=== PATIENT | female | born 1980 | race Caucasian/White ===

== ENCOUNTER → 2018-03-07 | Outpatient (CLI) | payer OTHER ==
[~2018-03-07] MED LIST: MULT-506 PO
== END | disposition home or self-care (01) ==
LOC: C.LAB 09:12
PROVIDERS: ATTEND Family Medicine
DX: R06.02 Shortness of breath (principal)

== ENCOUNTER 2018-03-09 09:45 | Emergency (ER) | payer OTHER ==
[~2018-03-09] VITALS: Ht 175.3 cm; Wt 56.1 kg
[2018-03-09 09:49] VITALS: TEMP 36.7; Ht 175.3 cm; Wt 56.1 kg
[2018-03-09 09:55] VITALS: O2SAT 100
[2018-03-09] MEDS ORDERED: SODIUM CHLORIDE 0.9% 1000ML 1,000 ML IV STA (10:03)
[2018-03-09] MEDS ORDERED: ASPIRIN 81 MG CHEW PO STA (10:03)
[2018-03-09] MEDS ORDERED: KETOROLAC TROMETHAMINE 30 MG/ML VIAL IV STA (10:03)
[2018-03-09 10:10] LABS: BASO % 0.6 %; BASO ABS # 0.03 K/uL (0-0.2); EOS ABS # 0.05 K/uL (0-0.5); HEMATOCRIT 42.3 % (37-47); HEMOGLOBIN 14.7 g/dL (12.0-16.0); LYMPH % 29.3 %; LYMPH ABS # 1.54 K/uL (1.2-3.4); MEAN CELL VOLUME 85.3 fL (80-100); MEAN CORPUSCULAR HEMOGLOBIN 29.6 pg (25-34); MEAN CORPUSCULAR HGB CONC 34.8 g/dl (32-36); MEAN PLATELET VOLUME 9.7 fL (7.4-10.4); MONO ABS # 0.37 K/uL (0.11-0.59); NEUT % 62.1 %; NEUT ABS # 3.27 K/uL (1.4-6.5); PLATELET COUNT 228 K/uL (130-400); RED CELL DISTRIBUTION WIDTH CV 12.6 % (11.5-14.5); RED CELL DISTRIBUTION WIDTH SD 38.7 fL (36.4-46.3); WHITE BLOOD COUNT 5.26 K/uL (4.8-10.8)
[2018-03-09] MEDS ORDERED: MULT-506 PO (10:29)
--- NOTE | 2018-03-09 10:32 | DIAGNOSTIC IMAGING REPORT ---
CHEST ONE VIEW PORTABLE HISTORY: Atypical Chest Pain COMPARISON: None. FINDINGS: The lungs are clear. Cardiac silhouette is normal in size. No pleural effusions. No pneumothorax. IMPRESSION: No acute process. Electronically signed by: Hi Sinclair M.D. 03/09/2018 10:31 AM Dictated Date/Time: 03/09/2018 10:29 AM
[2018-03-09 10:33] LABS: BLOOD UREA NITROGEN 14 mg/dl (7-18); CALCIUM 8.7 mg/dl (8.5-10.1); CARBON DIOXIDE 26 mmol/L (21-32); CREATININE 0.94 mg/dl (0.60-1.20); GLUCOSE 102 mg/dl (70-99); POTASSIUM 3.5 mmol/L (3.5-5.1); SODIUM 139 mmol/L (136-145)
[2018-03-09 15:34] VITALS: BP 94/67; PULSE 67; O2SAT 99
--- NOTE | 2018-03-09 16:35 | EXERCISE STRESS ECHO ---
*NOTICE TO RECEIVING [employer] This information is strictly Confidential and protected under [place] law. [place] law prohibits you from making any further disclosure of this information unless further disclosure is expressly permitted by the written consent of the person to whom it pertains or is authorized by law. A general authorization for the release of medical or other information is not sufficient for this purpose. Hospital accepts no responsibility if the information is made available to any other person, INCLUDING THE PATIENT. Interpretation Summary * Name: MAULIK SORENSEN Study Date: 03/09/2018 01:46 PM BP: 114/48 mmHg * Patient Location: [facility] HR: 60 * : 1980 (M/d/yyyy) Gender: Female Height: 69 in * Age: 37 yrs Ethnicity: [place] Weight: 123 lb * Ordering Physician: Nick Sanchez * Referring Physician: Self, Referred * Performed By: Latonia Alexander RDCS * * Reason For Study: CHEST PAIN * BSA: 1.7 m2 * -- Conclusions -- * Nonischemic exercise stress echocardiogram * No arrhythmias. * Normal HR and BP response to exercise. * Above average exercise tolerance. * At rest, normal LV chamber size and wall thickness. * Normal LV s ystolic function, EF 60-65%. * No segmental left ventricular wall motion abnormalities are noted. * Normal diastolic function. * No significant valvular pathology. * Posterior pericardial wall with possible increased thickness. Cannot exclude regional pericardial inflammation. Procedure Details * ECHOEX, CPT #37059 Left Ventricle * The left ventricle is normal in size. * There is normal left ventricular wall thickness. * Ejection Fraction = 60-65%. * Left ventricular systolic function is normal. * No segmental left ventricular wall motion abnormalities are noted. * Resting wall motion: Normal. Stress wall motion: Appropriate increase in Left ventricular systolic function and decrease in cavity size. No stress induced segmental wall motion abnormalities. Right Ventricle * The right ventricular cavity size is normal (basal dimension <4.2 cm in right ventricular apical 4-chamber view). * The right ventricular systolic function is normal as assessed by tricuspid annular plane systolic excursion (TAPSE) (normal >1.5 cm). Atria * The left atrial size is normal. * Right atrial size is normal. * No ASD detected; PFO is not assessed. Mitral Valve * The mitral valve is normal in structure and function. Tricuspid Valve * The tricuspid valve is normal in structure and function. Aortic Valve * The aortic valve is not well visualized. * No hemodynamically significant valvular aortic stenosis. * There is no significant aortic regurgitation. Pulmonic Valve * The pulmonary valve is not well seen, but the Doppler examination is normal without significant regurgitation or stenosis. Great Vessels * The aortic root is normal size. Pericardium * There is no pericardial effusion. * Posterior pericardial wall with possible increased thickness. Cannot exclude regional pericardial inflammation. Stress Parameters * Normal baseline electrocardiogram. * Stress ECG: No ST changes. No arrhythmias. * No arrhythmia were noted with stress. * The stress portion of this study was personally supervised by the undersigned interpreting physician. * Rest heart rate was '60' BPM. * Rest blood pressure was '114/48' * Maximum heart rate achieved was 169 bpm. * Maximum heart rate was 91 % of maximum age-predicted heart rate. * Maximum blood pressure was '150/86' * Total exercise time was '11:04' * Maximum exercise MET level achieved was '13.40' METS * Maximum treadmill speed was '4.20' miles per hour. * Maximum treadmill elevation was '16.00'% grade. * Exercise was terminated due to 'ACHIEVING TARGET HR' Left Ventricular Diastolic Function * Pulse wave TDI of the anterior and posterior mitral annulas demonstrates normal LV relaxation MMode 2D Measurements and Calculations IVSd 0.68 cm IVSs 0.74 cm LVIDd 4.2 cm LVIDs 2.8 cm LVPWd 0.71 cm LVPWs 1.1 cm IVS/LVPW 0.97 FS 34.1 % EDV(Teich) 78.1 ml ESV(Teich) 28.6 ml EF(Teich) 63.4 % EDV(cubed) 73.5 ml ESV(cubed) 21.1 ml EF(cubed) 71.3 % % IVS thick 8.7 % % LVPW thick 49.3 % LV mass(C)d 83.8 grams LV mass(C)dI 49.9 grams/m\S\2 LV mass(C)s 61.9 grams LV mass(C)sI 36.8 grams/m\S\2 SV(Teich) 49.5 ml SI(Teich) 29.5 ml/m\S\2 SV(cubed) 52.4 ml SI(cubed) 31.2 ml/m\S\2 Ao root diam 2.5 cm Ao root area 4.9 cm\S\2 LA dimension 2.8 cm LA/Ao 1.1 LVAd ap4 25.7 cm\S\2 LVLd ap4 8.8 cm EDV(MOD-sp4) 64.0 ml EDV(sp4-el) 63.9 ml LVAs ap4 13.4 cm\S\2 LVLs ap4 7.1 cm ESV(MOD-sp4) 22.2 ml ESV(sp4-el) 21.4 ml EF(MOD-sp4) 65.3 % EF(sp4-el) 66.5 % LVAd ap2 24.5 cm\S\2 LVLd ap2 8.6 cm EDV(MOD-sp2) 59.5 ml EDV(sp2-el) 59.5 ml LVAs ap2 13.8 cm\S\2 LVLs ap2 7.4 cm ESV(MOD-sp2) 22.2 ml ESV(sp2-el) 21.7 ml EF(MOD-sp2) 62.7 % EF(sp2-el) 63.5 % LVLd %diff -2.17 % EDV(MOD-bp) 61.2 ml LVLs %diff 3.4 % ESV(MOD-bp) 22.8 ml EF(MOD-bp) 62.8 % SV(MOD-sp4) 41.8 ml SI(MOD-sp4) 24.9 ml/m\S\2 SV(MOD-sp2) 37.3 ml SI(MOD-sp2) 22.2 ml/m\S\2 SV(MOD-bp) 38.5 ml SI(MOD-bp) 22.9 ml/m\S\2 SV(sp4-el) 42.5 ml SI(sp4-el) 25.3 ml/m\S\2 SV(sp2-el) 37.8 ml SI(sp2-el) 22.5 ml/m\S\2 Doppler Measurements and Calculations MV E max jovan 88.4 cm/sec MV A max jovan 48.5 cm/sec MV E/A 1.8 MV dec time 0.31 sec Ao V2 max 144.9 cm/sec Ao max PG 8.4 mmHg Ao max PG (full) 1.5 mmHg LV V1 max PG 6.9 mmHg LV V1 max 131.0 cm/sec
--- NOTE | 2018-03-09 16:47 | EMERGENCY ROOM VISIT NOTE ---
History Report prepared by Kinga: Diego Hardy Under the Supervision of: Dr. Wesley Solomon D.O. First contact with patient: 09:53 Chief Complaint: CHEST PAIN Stated Complaint: CHEST DISCOMFORT/PAIN, LIGHTHEADEDNESS Nursing Triage Summary: pt reports chest pain has bene intermittent for 1 week feels sob and describes pain as heaviness. went to pcp on friday had blood work and ekg told testing was fine History of Present Illness The patient is a 37 year old female who presents to the Emergency Room with complaints of intermittent chest "discomfort" that she has been experiencing for the past week. From last night into this morning the discomfort has been more constant, but she felt fine yesterday morning into the afternoon. The symptoms are worsened with exertion. Nothing seems to improve the pain. There has been pain intermittently radiating down both arms as well and she has felt some shortness of breath. She notes that she was experiencing lightheadedness before the chest pain initially onset 1 week ago. The patient denies any recent trips/travel or family/personal history of blood clots. There is a family history of heart disease. Source of History: patient Onset: 1 week ago Position: chest Quality: other ("Discomfort") Timing: intermittent Associated Symptoms: + headache (lightheadedness), + SOB Review of Systems See HPI for pertinent positives & negatives. A total of 10 systems reviewed and were otherwise negative. Past Medical & Surgical No significant medical histories. Family History Heart disease Social History Smoking Status: Never Smoker Marital Status: Housing Status: lives with family Occupation Status: employed Current/Historical Medications Scheduled Multivitamin (Multivitamin), 1 TAB PO DAILY Allergies Coded Allergies: Penicillins (Unverified Allergy, Unknown, UNKNOWN, 03/09/18) Physical Exam Vital Signs Date Time Temp Pulse Resp B/P (MAP) Pulse Ox O2 Delivery O2 Flow Rate FiO2 03/09/18 15:34 67 18 94/67 99 Room Air 03/09/18 14:03 62 18 104/59 99 Room Air 03/09/18 13:13 62 03/09/18 12:38 65 18 108/64 99 Room Air 03/09/18 10:54 66 18 116/68 100 Room Air 03/09/18 10:26 71 18 137/81 100 Room Air 03/09/18 10:00 79 03/09/18 09:55 100 Room Air 03/09/18 09:49 36.7 91 18 122/79 100 Room Air Physical Exam GENERAL: Sitting up in bed, alert, well appearing, well nourished, no distress, non-toxic EYE EXAM: normal conjunctiva. OROPHARYNX: no exudate, no erythema, lips, buccal mucosa, and tongue normal and mucous membranes are moist NECK: supple, no nuchal rigidity, no adenopathy, non-tender LUNGS: Clear to auscultation. Normal chest wall mechanics HEART: no murmurs, S1 normal and S2 normal ABDOMEN: abdomen soft, non-tender, normo-active bowel sounds, no masses, no rebound or guarding. BACK: Back is symmetrical on inspection and there is no deformity, no midline tenderness, no CVA tenderness. SKIN: no rashes and no bruising UPPER EXTREMITIES: upper extremities are grossly normal. Radial pulses are equal bilaterally. LOWER EXTREMITIES: No pitting edema. Calves equal bilaterally. NEURO EXAM: Normal sensorium, cranial nerves II-XII grossly intact, normal speech, no gross weakness of arms, no gross weakness of legs. Medical Decision & Procedures ER Provider Diagnostic Interpretation: Radiology results as stated below per my review and the radiologist's interpretation: CHEST ONE VIEW PORTABLE HISTORY: Atypical Chest Pain COMPARISON: None. FINDINGS: The lungs are clear. Cardiac silhouette is normal in size. No pleural effusions. No pneumothorax. IMPRESSION: No acute process. Electronically signed by: Hi Sinclair M.D. 03/09/2018 10:31 AM Dictated Date/Time: 03/09/2018 10:29 AM Laboratory Results 03/09/18 10:00 Red Blood Count 4.96, Mean Corpuscular Volume 85.3, Mean Corpuscular Hemoglobin 29.6, Mean Corpuscular Hemoglobin Concent 34.8, Mean Platelet Volume 9.7, Neutrophils (%) (Auto) 62.1, Lymphocytes (%) (Auto) 29.3, Monocytes (%) (Auto) 7.0, Eosinophils (%) (Auto) 1.0, Basophils (%) (Auto) 0.6, Neutrophils # (Auto) 3.27, Lymphocytes # (Auto) 1.54, Monocytes # (Auto) 0.37, Eosinophils # (Auto) 0.05, Basophils # (Auto) 0.03 5/7/18 10:00 Test 03/09/18 10:00 03/09/18 12:38 03/09/18 14:00 White Blood Count 5.26 K/uL (4.8-10.8) Red Blood Count 4.96 M/uL (4.2-5.4) Hemoglobin 14.7 g/dL (12.0-16.0) Hematocrit 42.3 % (37-47) Mean Corpuscular Volume 85.3 fL (80-100) Mean Corpuscular Hemoglobin 29.6 pg (25-34) Mean Corpuscular Hemoglobin Concent 34.8 g/dl (32-36) Platelet Count 228 K/uL (130-400) Mean Platelet Volume 9.7 fL (7.4-10.4) Neutrophils (%) (Auto) 62.1 % Lymphocytes (%) (Auto) 29.3 % Monocytes (%) (Auto) 7.0 % Eosinophils (%) (Auto) 1.0 % Basophils (%) (Auto) 0.6 % Neutrophils # (Auto) 3.27 K/uL (1.4-6.5) Lymphocytes # (Auto) 1.54 K/uL (1.2-3.4) Monocytes # (Auto) 0.37 K/uL (0.11-0.59) Eosinophils # (Auto) 0.05 K/uL (0-0.5) Basophils # (Auto) 0.03 K/uL (0-0.2) RDW Standard Deviation 38.7 fL (36.4-46.3) RDW Coefficient of Variation 12.6 % (11.5-14.5) Immature Granulocyte % (Auto) 0.0 % Immature Granulocyte # (Auto) 0.00 K/uL (0.00-0.02) D-Dimer < 190 ug/L FEU (0-500) Anion Gap 5.0 mmol/L (3-11) Est Creatinine Clear Calc Drug Dose 73.3 ml/min Estimated GFR () 90.5 Estimated GFR (Non- 78.1 BUN/Creatinine Ratio 15.0 (10-20) Calcium Level 8.7 mg/dl (8.5-10.1) Total Creatine Kinase 68 U/L (26-192) Urine Test NEG (NEG) Troponin I < 0.015 ng/ml (0-0.045) Laboratory results per my review. Medications Administered Medications (Trade) Dose Ordered Sig/Kyaw Route Start Time Stop Time Status Last Admin Dose Admin Sodium Chloride 1,000 ml @ 999 mls/hr Q1H1M STAT IV 03/09/18 10:03 03/09/18 11:03 DC 03/09/18 10:24 999 MLS/HR Aspirin (Aspirin Chew) 324 mg NOW STAT PO 03/09/18 10:03 03/09/18 10:05 DC 03/09/18 10:24 324 MG Ketorolac Tromethamine (Toradol Inj) 30 mg NOW STAT IV 03/09/18 10:03 03/09/18 10:05 DC 03/09/18 10:23 30 MG ECG Per My Interpretation Indication: chest pain Rate (beats per minute): 66 Rhythm: sinus with SA Findings: no ectopy, other (Normal axis, no PVCs) ED Course ED COURSE: Vital signs were reviewed and showed normal vitals. The patients medical record was reviewed The above diagnostic studies were performed and reviewed. ED treatments and interventions as stated above. 0957: The patient was evaluated in room A3. A complete history and physical examination was performed. 1003: Ordered Toradol 30 mg IV, Aspirin 324 mg PO, Sodium Chloride 1000 mL @ 999 mL/hr IV. 1119: I checked on the patient. She is pain free at this time. 1126: I discussed the case with Dr. Sanchez - [facility]. He will come to see the patient in the department. 1517: Dr. Sanchez has evaluated the patient at this time. She feels that the patient is safe to be discharged home. 1527: Upon reevaluation, the patient is resting in bed.I discussed my findings with the patient and she understands and agrees with the treatment plan. Based on the patients age, coexisting illnesses, exam and lab findings the decision to treat as an outpatient was made. The patient remained stable while under my care. The patient appeared well at the time of discharge. Medical Decision Differential diagnoses includes but is not limited to acute coronary syndrome, myocardial infarction, pericarditis, pulmonary embolus, aortic dissection, pneumonia, pneumothorax, musculoskeletal, shingles, esophageal. Patient is a 37-year-old female who presents the ER for chest pain and heaviness that has been present for the past 1 week. Only cardiac risk factors family history. Patient is otherwise medically stable. Chest x-ray is unremarkable. EKG was benign. Troponins were negative 2. Discussed with cardiology who stressed the patient and notes that this was an unremarkable stress test. He did question possible early part pericarditis. Recommended placing the patient on Motrin 600 mg 3 times a day and following up as an outpatient. Patient family were updated at bedside. 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 Discussed with Pt concerning signs and symptoms to watch out for. Pt was instructed to follow up with their PCP and discussed with the patient their option to return to the ED at anytime for persistent or worsening symptoms. The appropriate anticipatory guidance and out-patient management, including indications for return to the emergency department, were explained at length to the patient and understood. Medication Reconcilliation Current Medication List: was personally reviewed by me Blood Pressure Screening Patient's blood pressure: Normal blood pressure Consults Time Called: 1120 Consulting Physician: Dr. [facility] Returned Call: 1126 I discussed the case with Dr. [facility]. He will come to see the patient in the department. 1527: Dr. Sanchez has evaluated the patient at this time. She feels that the patient is safe to be discharged home. Impression Primary Impression: Chest pain Scribe Attestation The scribe's documentation has been prepared under my direction and personally reviewed by me in its entirety. I confirm that the note above accurately reflects all work, treatment, procedures, and medical decision making performed by me. Departure Information Dispostion Home / Self-Care Referrals Lamar Myrick D.O. (PCP) Forms Call Back Authorization, HOME CARE DOCUMENTATION FORM, IMPORTANT VISIT INFORMATION Patient Instructions My [facility] Additional Instructions Please follow up with your primary care doctor with in the next 24 hours. Any worsening of your symptoms, please return to the ED immediately. This includes any fevers greater than 100.4, worsening pain, chest pain, shortness breath, persistent nausea, vomiting, unable to eat or drink, or any other concerning signs or symptoms from your standpoint. Per cardiology's request please take Motrin 200 400 mg 3 times a day and follow- up as an outpatient. Problem Qualifiers Primary Impression: Chest pain Chest pain type: unspecified Qualified Codes: R07.9 - Chest pain, unspecified
--- NOTE | 2018-03-09 20:53 | CARDIOLOGY CONSULTATION ---
DATE OF CONSULTATION: 03/09/2018 REQUESTING PHYSICIAN: Dr. Wesley Solomon. REASON FOR CONSULTATION: Chest pain. HISTORY OF PRESENT ILLNESS: Mrs. Perkins is a very pleasant 37-year-old woman who presented to [facility] with a complaint of chest pain. The patient states that the pain started approximately 10 days ago. She described it as a usually dull substernal pressure sensation. She states that she notices this throughout the day but does not seem to appear to have any significant pattern to it. She states it can occur either at rest or with exertion and has even occurred in the middle of the night waking her up from sleep; and she also was seen by her primary care physician's office and was timely scheduled for an outpatient stress test. She, however, on the morning of 03/09/2018, she had an episode that was more severe than normal. She describes it as severe pressure sensation in the center of her chest that radiated to her left precordium. It was associated with left arm numbness and radiation of the discomfort up to her jaw and neck. She had associated nausea with it and some slight associated shortness of breath. This episode occurred at rest. At that time, she became concerned and came to the Emergency Department. In the ER, her initial workup was unremarkable and I was contacted by the ER physician. Currently, the patient was seen and examined at the ER bedside. She states that the pain is minimal, if at all present at this point. PAST SURGICAL HISTORY: 1. C-sections. 2. Tubal ligation. MEDICAL ILLNESSES: Denies. FAMILY HISTORY: Remarkable for father, who developed heart disease at age 59. No premature coronary artery disease or sudden cardiac . SOCIAL HISTORY: Denies any alcohol, tobacco, or recreational drug use. She is . She lives at home with her and 6 children are in good health. She is a homemaker. She exercises on a regular basis. REVIEW OF SYSTEMS: As per HPI. All review of systems reviewed and negative at this time. ALLERGIES: PENICILLIN V. MEDICATIONS AN OUTPATIENT: Multivitamin daily. PHYSICAL EXAMINATION: VITAL SIGNS: Temperature 36.7, pulse 67, respiratory rate 12, blood pressure 94/67. GENERAL: Awake, alert, oriented x3 in no acute distress. HEENT: Normocephalic, atraumatic. Pupils equal, round react to light and accommodation. Extraocular muscles intact. Anicteric sclerae. Moist mucous membranes. NECK: No JVD, no bruit. CARDIOVASCULAR: Regular. No S4. Normal S1 and S2. No S3. No murmurs or rubs. Possible faint systolic rub heard best at left sternal border midclavicular line, fifth intercostal space. PULMONARY: Clear to auscultation bilaterally. No rales, rhonchi, or wheezing. ABDOMEN: Bowel sounds x4, soft. No rebound, guarding, tenderness. No organomegaly. EXTREMITIES: No clubbing, cyanosis, or edema. +2 pedal pulses bilaterally. SKIN: Warm and dry. TEST RESULTS: A 12-lead EKG performed in the Emergency Department independently reviewed at this time shows normal sinus rhythm with sinus arrhythmia at 66 beats per minute, normal axis, normal intervals, normal study. LABORATORY STUDIES OF SIGNIFICANCE: Troponin negative x2. Exercise stress echocardiogram performed was nonischemic, no arrhythmias, normal heart rate and blood pressure response to exercise, above-average exercise tolerance. At rest, normal LV chamber size and wall thickness, normal LV systolic function. No significant valvular pathology. Possible increased thickness of the posterior pericardial wall. Cannot exclude regional pericardial inflammation. IMPRESSION: Chest discomfort with nonischemic exercise stress echocardiogram. RECOMMENDATIONS: It was my pleasure to see Mrs. Perkins in consultation today. The patient and her were counseled at this point and obviously ischemia is ruled out as a possible cause of her chest discomfort and given the atypical nature of it and the possible pericardial thickening, I would recommend a trial of ibuprofen 600 mg 3 times a day with food for 7-10 days to see if this does not improve her symptoms, to treat for possible regional pericarditis. Should her symptoms improve on NSAIDs and then return after a short course, she should follow up with her family physician and be started on a long-term course of ibuprofen and colchicine, but at this point the patient has not had any recent sick contacts. No tick bites, no recent travel so I am hoping that a short course of NSAIDs will be beneficial. Otherwise, no cardiac followup is necessary and is okay to discharge the patient home from a cardiac standpoint.
== END 2018-03-09 15:59 | disposition home or self-care (01) ==
LOC: C.EDB 09:46 → C.EDA 15:59
DX: R07.9 Chest pain, unspecified (principal); Z82.49 Family history of ischemic heart disease and other diseases of the circulatory system; Z88.0 Allergy status to penicillin